=== PATIENT | female | born 1990 ===

== ENCOUNTER 2017-12-02 15:26 | Emergency (ER) | payer MEDICAID ==
[2017-12-02 16:00] VITALS: BMI 26.6
--- NOTE | 2017-12-02 16:47 | OBHP ---
Datetime: 12/02/2017 16:00 IP Adm Impression: , intrauterine ; No Active Labor; Intact Membranes IP Admit Plan: Observation/Evaluation; Discharge home Admit Comment, IP Provider: 27 yo EGA 32.5 based on KELLY of 01/22 stated by patient. She repo rts VB for 1 hour. She noticed some blood in her panty liner. She reports similar history at 3 months and was notified it was 2/2 to recent intercourse. Last intercourse was <48 hours ago. Reports: FM Denies: LOF, CTX ros: Denies: dizziness, headaches, cp/sob/n/v/d, epigastric pain, dysuria, increased urinary frequ ency or vaginal discomfort/buring/pruritis PNC: Surinder Hernandez; obhx: SAB at 10 wk and one TOP at 6 weeks pmhx: none famhx: htn soc: denies: smoking, alcohol, illicit drugs surg: [place] NKDA Rx: NONE Gen: AAOx3 not in acute distress Cardiac: S1S2 lungs: CTA bilaterally no wheezing abdo: gravid, active bowel sounds, nontender to palpation CVA: nontender no calf tenderness Sterile speculum exam: cervix visualized to be closed. Thick white, physiologic discharge noted. 27 yo IUP 32.5 presents with vaginal spotting after recent intercourse -Pt observed -FHT reassuring NST- Reactive -Vitals stable case seen and evaluated with Dr. Romario Winters MD PGY Addendum: Pt has been monitored for at least 30 minutes; FHT reassuring. Pt may be d/c home with ER precautions and to f/u with OB during her next appt next monday. Bruce Winters MD PGY1 Attending Note: Pt was seen and evaluated at her bedside with Resident and I agree with the above. Pelvic Type - PN: Adequate Extremities - PN: Normal Abdomen - PN: Normal Back - PN: Normal Breast - PN: Not Done Lungs - PN: Normal Heart - PN: Abnormal Thyroid - PN: Not Done Neurologic - PN: Normal HEENT - PN: Normal General - PN: Normal FHR - Baseline A Provider: 140 Pool Provider: Negative EGA AdmitDate IP: 32.5 Vital Signs Provider: Reviewed; Within Normal Limits IP Chief Complaint: Vaginal bleeding NICHD Variability Prov Fetus A: Moderate 6-25bpm NICHD Accel Fetus A IP Provider: [id number] FHR Category Provider Fetus A: Category I NICHD Decel Fetus A IP Provider: None Dilatation, Provider: 0 Genitourinary Exam: Normal DTRs - PN: Not Done
[2017-12-02 20:54] VITALS: BP 116/72; PULSE 100; RESP 18; TEMP 98.9; O2SAT 100
== END 2017-12-02 16:30 | disposition home or self-care (01) ==
LOC: MERGE 15:26 → H.EROB2 15:26
DX: O26.853 Spotting complicating pregnancy, third trimester (principal); Z3A.32 32 weeks gestation of pregnancy; O47.03 False labor before 37 completed weeks of gestation, third trimester

== ENCOUNTER 2018-01-11 05:03 | Inpatient (IN) | payer MEDICAID ==
[2018-01-11 06:08] VITALS: BMI 30.4
[2018-01-11 07:25] LABS: BASO % 0.2 % (0.0-2.0); EOS # 0.1 K/uL (0.0-0.7); EOS % 0.9 % (0.0-4.0); HEMOGLOBIN 12.5 g/dL (12.0-16.0); LYMPH # 1.7 K/uL (1.0-4.3); LYMPH % 17.7 % (20.0-40.0); MEAN CELL VOLUME 86.2 fl (81.0-99.0); MEAN CORPUSCULAR HEMOGLOBIN 29.8 pg (27.0-31.0); MEAN CORPUSCULAR HGB CONC 34.6 g/dL (33.0-37.0); MEAN PLATELET VOLUME 8.9 fl (7.2-11.7); MONO # 1.1 K/uL (0.0-0.8); NEUT # 6.8 K/uL (1.8-7.0); NEUT % 70.2 % (50.0-75.0); RBC 4.19 Mil/uL (3.80-5.20); RED CELL DISTRIBUTION WIDTH 13.3 % (11.5-14.5); WHITE BLOOD COUNT 9.7 K/uL (4.8-10.8)
[2018-01-11 07:38] LABS: ALB/GLOB RATIO 1.1 (1.0-2.1); ALBUMIN 3.7 g/dL (3.5-5.0); ALT/SGPT 23 U/L (9-52); AST/SGOT 25 U/L (14-36); BILIRUBIN,DIRECT 0.1 mg/ml (0.0-0.4); BLOOD UREA NITROGEN 10 mg/dl (7-17); CALCIUM 9.9 mg/dL (8.4-10.2); GFR AFRICAN-AMERICAN > 60; GFR NON-AFRICAN AMERICAN > 60; URIC ACID 4.9 mg/Dl (2.2-7.5)
[2018-01-11 07:56] LABS: SQUAMOUS EPITHIAL 6 /hpf (0-5); URINE BACTERIA RARE (<OCC); URINE BILIRUBIN NEGATIVE (NEGATIVE); URINE BLOOD NEGATIVE (NEGATIVE); URINE CLARITY CLOUDY (Clear); URINE COLOR YELLOW (YELLOW); URINE GLUCOSE (UA) NEG (Normal); URINE LEUKOCYTE ESTERASE NEG Leu/uL (Negative); URINE PROTEIN NEGATIVE (NEGATIVE); URINE UROBILINOGEN 0.2-1.0 mg/dL (0.2-1.0)
[2018-01-11] MEDS ORDERED: Lactated Ringer's 2,000 ML IV ONE (13:44)
[2018-01-11] MEDS ORDERED: Lactated Ringer's 1,000 ML IV SCH (13:45)
[2018-01-11 15:30] LABS: HEMOGLOBIN 12.1 g/dL (12.0-16.0); MEAN CELL VOLUME 85.4 fl (81.0-99.0); MEAN CORPUSCULAR HEMOGLOBIN 30.4 pg (27.0-31.0); MEAN CORPUSCULAR HGB CONC 35.6 g/dL (33.0-37.0); RBC 3.97 Mil/uL (3.80-5.20); WHITE BLOOD COUNT 9.3 K/uL (4.8-10.8)
--- NOTE | 2018-01-11 15:59 | OBADHP ---
Datetime: 01/11/2018 14:43 IP Chief Complaint Other: headache Admit Comment, IP Provider: Pt is 27yo A2 38.1 wk uncomplicated with no sig PMH presented to OB ED due to headache that started at 7 pm yesterday, pt state the pain is constant in frontal area, no radiation, and its constant. She denies anything that exacerbates and have tried Tylenol with no impr ovment. Pt also state that she is having leg swollen b/l, but denies any Dizziness, N/V/D/C, chest pa in, SOB, abd pain, dysuria or polyuria. Pt also denies vaginal bleed, contraction, loss of fluid, fal ls, or trauma to abdomen. Allergy none Med: PMH: none OBGYN: Pt had 2 unsuccessful , one elective other spontaneouse, Pt have regular mensis, p ap smear normal last year, denies STD. PSH: liposuction PFH:MOm HTN Social: no smoke no alcoholic drink, denies drug use. Labs: HIV nonreact, GBS Neg, Rubell in[place]e,GC/CL:Nonreact, RPR Nonreact, ABO:B- ED Course CBC: WNL UA: + 6 epith cell, other WNL Vitals : WNL except bp, ranged from 104-146 Pt was admitted for induction of labor Assessment: Pt Is 27 yo A2, 38.1wk, who presents with cc headache and elevated BP, Admited to be induced HTN/headache Pt is lying comfortable in bed with no acute distress Blood pressure 133/89 Plan admit for induction Induction Cervidel F/U CBC Lactate anesthesiology Monitor vitals Pt seen and examined with Dr Adrian Note by Dr. Lewis PGY 1 Attending addendum: I saw and examined the patient myself. I did a history and physical. I reviewed the resident note above and agree with findings and management. Patient for IOL secondary to gestational hypertension at term, no signs or sx of PEC at this time. Monitor BP closely. Not kennedy will give cervadil for cervical ripening. GBS neg. vertex on bedise u/s now. Pelvic Type - PN: Adequate Extremities - PN: Normal Abdomen - PN: Normal Back - PN: Normal Breast - PN: Not Done Lungs - PN: Normal Heart - PN: Normal Thyroid - PN: Not Done Neurologic - PN: Not Done HEENT - PN: Normal General - PN: Normal Presentation-Admit: Vertex FHR - Baseline A Provider: 150 Contraction Comments Provider: 0 Comments, ACOG Physical Exam: Vitals 132/89 P 99 , ox 100 PT is lying on bed comfortable with no acute distress Cardiac: S1 s2 heard no murmur no gallop Lung: Clear breath sound all quadrant Abd: BS+, Non tender. extrimity : pedal edema Gestation - Est Wks by US: 38.1 Vital Signs Provider: Reviewed; Within Normal Limits IP Chief Complaint: Signs/Symptoms Gestational HTN; Other NICHD Variability Prov Fetus A: Moderate 6-25bpm NICHD Accel Fetus A IP Provider: [id number] FHR Category Provider Fetus A: Category I NICHD Decel Fetus A IP Provider: None Dilatation, Provider: 0 Genitourinary Exam: Not Done DTRs - PN: Not Done EGA AdmitDate IP: 38.1 IP Adm Impression: Term, intrauterine IP Admit Plan: Admit to unit
[2018-01-11 17:29] VITALS: O2SAT 100
--- NOTE | 2018-01-12 13:16 | OBPN ---
Datetime: 01/12/2018 08:30 IP Progress Impression: Reassuring heart rate IP Informed Consent Obtain: Vaginal Delivery; Risks, Benefits and Alternatives Discussed IP Progress Plan: Induction; Anticipate Vaginal Delivery Pool Provider: Negative FHR - Baseline A Provider: 140 Presentation-Admit: Vertex IP Progress Note Comment: She feels fine. No CABELLO; no visual dist A; 38w Hx elevated BP PLAN: continue IOL. Discussionabout medications, pain managment, labor, delivey and ca re NICHD Accel Fetus A IP Provider: 15X15 FHR Category Provider Fetus A: Category I NICHD Variability Prov Fetus A: Moderate 6-25bpm NICHD Decel Fetus A IP Provider: None Datetime: 01/11/2018 14:43 Contraction Comments Provider: 0 Gestation - Est Wks by US: 38.1 Vital Signs Provider: Reviewed; Within Normal Limits Dilatation, Provider: 0
[2018-01-12] MEDS ORDERED: OXYTOCIN/0.9 % NS 20 UNIT/1,000 ML BAG IV SCH (15:00)
[2018-01-12] MEDS ORDERED: Oxytocin 30 units/LR 500ML 30 U/500 ML BAG IV ONE (15:00)
[2018-01-12] MEDS ORDERED: Fentanyl/Bupivacaine HCl 250 ML EPI ONE (22:45)
--- NOTE | 2018-01-13 04:04 | OBDS ---
MATERNAL INFORMATION Provider Comments: uncomplicated spontaneous vaginal delivery of a viable female infant with s cores of 9 and 9 . EBL- 300mls. Patient tolerated the procedure well. LABOR SUMMARY EDC: 01/24/2018 00:00 No. Babies in Womb: 1 LABOR INFORMATION Cervical Ripening Agents: Cytotec @ 50 mcg Group B Beta Strep: Negative
[2018-01-13] MEDS ORDERED: Benzocaine/Menthol SPRAY TOP PRN ×2 (05:24→09:51)
[2018-01-13] MEDS ORDERED: Oxycodone/Acetaminophen 5/325 mg Tab PO PRN ×2 (05:24→09:51)
[2018-01-14 07:52] LABS: HEMOGLOBIN 10.8 g/dL (12.0-16.0); MEAN CELL VOLUME 85.5 fl (81.0-99.0); MEAN CORPUSCULAR HEMOGLOBIN 30.3 pg (27.0-31.0); MEAN CORPUSCULAR HGB CONC 35.5 g/dL (33.0-37.0); RBC 3.58 Mil/uL (3.80-5.20); RED CELL DISTRIBUTION WIDTH 13.4 % (11.5-14.5); WHITE BLOOD COUNT 11.7 K/uL (4.8-10.8)
--- NOTE | 2018-01-14 11:38 | OBPPN ---
Datetime: 01/14/2018 07:30 PP Pain Prov: Within normal limits PP Nausea Prov: Denies PP Flatus Prov: No PP BM Prov: Yes PP Heart Prov: Normal PP Lungs Prov: Normal PP Abdomen/Uterus Prov: Normal PP Lochia Prov: Normal PP CVA Tenderness Prov: Normal PP Extremities Prov: Normal PP Impression Prov: Normal progression PP Plan Prov: Continue present management PP Progress Note Prov: 27 y/o F now , s/p NVD on 01/13/18 at 03:47. Pt reports feeling well, Pa in ins well controlled with medications. Lochia is same as menses. Pt is able to urinate, not sure ab out passing gasses and had a bowel movement last night. Pt afebrile, tolerating PO, able to ambulate slowly. Pt is trying to breast feed and supplementing with formula for now. All systems reviewed and negative except as above. O: H/H today is 10.8/30.6 >Physical Exam: -GEN: AAOx3, NAD -HEENT: NC/AT, EOMI, moist mucous membranes on oropharynx. -NECK: normal ROM, no stiffness. -CV: S1 and S2 present -LUNGS: CTAB -ABD: fundus below umbilicus, non-tender, BS normoactive. -EXT: No cyanosis, edema 1+ b/l, no calf tenderness. -NEURO: Awake, Stable mood. A/P: 27 y/o F now on PPD 1, stable and recovering well from NVD. -Continue post- manegement as ordered. - and Ambulation encouraged. -Anticipated D/C: tomorrow. Case discussed with Dr Doss, OB drilling contractor. Hayden PGY-2. Attending Note: Patient was seen and discussed with the resident and I agree with the assessment a soto. IP PP Procedures: None Vital Signs Provider PP: Reviewed
[2018-01-15 23:29] VITALS: BP 139/87; PULSE 90; RESP 20; TEMP 98.2
--- NOTE | 2018-01-16 08:01 | OBPPN ---
Datetime: 01/15/2018 06:33 PP Pain Prov: Within normal limits PP Nausea Prov: Denies PP Flatus Prov: Yes PP BM Prov: Yes PP Breasts Prov: Normal PP Heart Prov: Normal PP Lungs Prov: Normal PP Abdomen/Uterus Prov: Normal PP Lochia Prov: Normal PP Vulva/Perineum Prov: Not Done PP CVA Tenderness Prov: Not Done PP Extremities Prov: Normal PP C/S Incision Prov: Not Applicable PP Progress Prov: Normal PP Impression Prov: Normal progression PP Plan Prov: Continue present management; Discharge PP Progress Note Prov: 27 y/o F now , status post Normal vaginal delivery on 01/13/18 at 03: 47. Pt state that she is feeling well, no acute event overnight. Pain well controlled with medicatio ns. Lochia is less then menses. Pt is able to urinate, pass gas, and stool. Pt is able to ambulate wi th no difficulty. Pt is afebrile, tolerate PO. Pt is exclusively breast feed with no formula use. All systems reviewed and negative except as above. O: Last H/H on 01/15/16 is 10.8/30.6 Physical Exam: GEN: AAOx3, NAD HEENT: NC/AT, EOMI, moist mucous membranes on oropharynx. NECK: normal ROM, no stiffness. CV: S1 and S2 present LUNGS: Clear lung sound in all quadrant Abdomen fundus below umbilicus, non-tender, BS positive. -EXT: No cyanosis, no edema, no calf tenderness. NEURO: Awake, Stable mood. A/P: 27 yo F now on PPD 2, stable and recovering well from NVD. - and Ambulation encouraged. -Script for Ibuprofen and Iron are in chart. -Pt will been in 6 week for exam at [facility] clinic - Post- instruction are given -D/C home today. -Case discussed with OB attending. Alin PGY1 obh addendum late entry pt seen _ exmined by me. agree w/ above assessmetn and plan with following change- d/c home on pnv. may take otc motrin for uterine cramps IP PP Procedures: None Vital Signs Provider PP: Reviewed; Within Normal Limits
--- NOTE | 2018-01-16 08:08 | OBDCSUM ---
Datetime: 01/15/2018 06:48 Disch Instr Activity: Normal activity Disch Activity Restrictions: No sexual activity; Nothing in vagina - [place], tampons, douche
--- NOTE | 2018-01-17 11:40 | OBHP ---
Datetime: 01/12/2018 22:39 Presentation-Admit: Cephalic FHR - Baseline A Provider: 150 Gestation - Est Wks by US: 38.2 NICHD Variability Prov Fetus A: Moderate 6-25bpm NICHD Accel Fetus A IP Provider: [id number] FHR Category Provider Fetus A: Category I NICHD Decel Fetus A IP Provider: None Dilatation, Provider: 3 Effacement, Provider: 90 Station, Provider: -1 Datetime: 01/12/2018 08:30 Pool Provider: Negative Datetime: 01/11/2018 14:43 IP Adm Impression: Term, intrauterine IP Chief Complaint Other: headache IP Admit Plan: Admit to unit Admit Comment, IP Provider: Pt is 27yo A2 38.1 wk uncomplicated with no sig PMH presented to OB ED due to headache that started at 7 pm yesterday, pt state the pain is constant in frontal area, no radiation, and its constant. She denies anything that exacerbates and have tried Tylenol with no impr ovment. Pt also state that she is having leg swollen b/l, but denies any Dizziness, N/V/D/C, chest pa in, SOB, abd pain, dysuria or polyuria. Pt also denies vaginal bleed, contraction, loss of fluid, fal ls, or trauma to abdomen. Allergy none Med: PMH: none OBGYN: Pt had 2 unsuccessful , one elective other spontaneouse, Pt have regular mensis, p ap smear normal last year, denies STD. PSH: liposuction PFH:MOm HTN Social: no smoke no alcoholic drink, denies drug use. Labs: HIV nonreact, GBS Neg, Rubell [place],GC/CL:Nonreact, RPR Nonreact, ABO:B- ED Course CBC: WNL UA: + 6 epith cell, other WNL Vitals : WNL except bp, ranged from 104-146 Pt was admitted for induction of labor Assessment: Pt Is 27 yo A2, 38.1wk, who presents with cc headache and elevated BP, Admited to be induced HTN/headache Pt is lying comfortable in bed with no acute distress Blood pressure 133/89 Plan admit for induction Induction Cervidel F/U CBC Lactate anesthesiology Monitor vitals Pt seen and examined with Dr Adrian Note by Dr. Lewis PGY 1 Attending addendum: I saw and examined the patient myself. I did a history and physical. I reviewed the resident note above and agree with findings and management. Patient for IOL secondary to gestational hypertension at term, no signs or sx of PEC at this time. Monitor BP closely. Not kennedy will give cervadil for cervical ripening. GBS neg. vertex on bedise u/s now. Pelvic Type - PN: Adequate Extremities - PN: Normal Abdomen - PN: Normal Back - PN: Normal Breast - PN: Not Done Lungs - PN: Normal Heart - PN: Normal Thyroid - PN: Not Done Neurologic - PN: Not Done HEENT - PN: Normal General - PN: Normal Contraction Comments Provider: 0 Comments, ACOG Physical Exam: Vitals 132/89 P 99 , ox 100 PT is lying on bed comfortable with no acute distress Cardiac: S1 s2 heard no murmur no gallop Lung: Clear breath sound all quadrant Abd: BS+, Non tender. extrimity : pedal edema EGA AdmitDate IP: 38.1 Vital Signs Provider: Reviewed; Within Normal Limits IP Indication for Induction: Gest. HTN/PreEclampsia/Eclampsia IP Chief Complaint: Signs/Symptoms Gestational HTN; Other Genitourinary Exam: Not Done DTRs - PN: Not Done
== END 2018-01-15 19:29 | disposition home or self-care (01) | DRG 372 ==
LOC: H.EROB2 05:03 → H.L&D 13:44 → H.OB/GYN 01-13 09:00
PROVIDERS: ADMIT Obstetrics & Gynecology; ATTEND Obstetrics & Gynecology
PROC: 4A1HXCZ Monitoring of Products of Conception, Cardiac Rate, External Approach (ICD-10-PCS; 2018-01-11)
PROC: 10E0XZZ Delivery of Products of Conception, External Approach (ICD-10-PCS; principal; 2018-01-13)
PROC: 3E0234Z Introduction of Serum, Toxoid and Vaccine into Muscle, Percutaneous Approach (ICD-10-PCS; 2018-01-13)
DX: O13.4 Gestational [pregnancy-induced] hypertension without significant proteinuria, complicating childbirth (principal); O36.0930 Maternal care for other rhesus isoimmunization, third trimester, not applicable or unspecified; Z3A.38 38 weeks gestation of pregnancy; Z37.0 Single live birth